=== PATIENT | female | born 1990 | race African-American/Black ===

== ENCOUNTER 2016-10-18 16:33 | Emergency (ER) | payer OTHER ==
[2016-10-18 16:50] VITALS: BP 134/89; PULSE 63; TEMP 98; BMI 31.8
[2016-10-18] MEDS ORDERED: KETOROLAC TROMETHAMINE 60 MG/2 ML VIAL IM ONE (17:26)
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
[2016-10-18] MEDS ORDERED: KETOROLAC TROMETHAMINE 60 MG/2 ML VIAL ONE (17:48)
== END 2016-10-18 18:18 | disposition home or self-care (01) ==
LOC: JERFT 16:33
PROC: 3E0233Z Introduction of Anti-inflammatory into Muscle, Percutaneous Approach (ICD-10-PCS; principal; 2016-10-18)
DX: S13.4XXA Sprain of ligaments of cervical spine, initial encounter (principal); M62.830 Muscle spasm of back; V43.62XA Car passenger injured in collision with other type car in traffic accident, initial encounter; Y92.414 Local residential or business street as the place of occurrence of the external cause; Y93.89 Activity, other specified
CPT/HCPCS: 84703; 99281-25

== ENCOUNTER 2016-10-21 17:56 | Emergency (ER) | payer OTHER ==
[2016-10-21 18:22] VITALS: BP 144/93; PULSE 87; TEMP 97.9; BMI 31.8
[2016-10-21 19:55] LABS: URINE APPEARANCE CLEAR; URINE BILIRUBIN NEGATIVE (NEGATIVE); URINE BLOOD NEGATIVE (NEGATIVE); URINE COLOR STRAW; URINE GLUCOSE (UA) NEGATIVE (NEGATIVE); URINE KETONE NEGATIVE (NEGATIVE); URINE LEUK ESTERASE NEGATIVE (NEGATIVE); URINE NITRITE NEGATIVE (NEGATIVE); URINE PROTEIN NEGATIVE (NEGATIVE); URINE UROBILINOGEN NEGATIVE E.U./dl (0.2-1.0)
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
== END 2016-10-21 20:02 | disposition home or self-care (01) ==
LOC: JERFT 17:56
DX: S13.4XXD Sprain of ligaments of cervical spine, subsequent encounter (principal); V43.62XD Car passenger injured in collision with other type car in traffic accident, subsequent encounter; Y92.414 Local residential or business street as the place of occurrence of the external cause
CPT/HCPCS: 81003; 84703; 99281-25

== ENCOUNTER 2018-12-02 08:56 | Emergency (ER) | payer OTHER | END 2018-12-02 10:18 | disposition home or self-care (01) | LOC: JERFT 08:56 ==

== ENCOUNTER 2020-02-22 16:50 | Inpatient (IN) | payer OTHER ==
[2020-02-22 19:01] LABS: EPI CELLS >36 /uL (0-25.1); HYALINE CASTS 4 /uL (0-3.1); PH,URINE 6.5 (5.0-8.0); URINE APPEARANCE CLEAR; URINE BACTERIA 1919 /uL (0-1359); URINE BILIRUBIN NEGATIVE (NEGATIVE); URINE COLOR YELLOW; URINE GLUCOSE (UA) NEGATIVE (NEGATIVE); URINE KETONE NEGATIVE (NEGATIVE); URINE LEUK ESTERASE NEGATIVE (NEGATIVE); URINE NITRITE NEGATIVE (NEGATIVE); URINE PROTEIN 2+ (NEGATIVE); URINE RBC 2 /uL (0-23.9); URINE WBC 23 /uL (0-25.8)
[2020-02-22 19:23] LABS: BASO % 0.2 % (0-2.0); EOS % 0.9 % (0-4.5); HEMATOCRIT 35.5 % (32.4-45.2); HEMOGLOBIN 11.7 GM/dL (10.7-15.3); LYMPH % 16.7 % (8-40); MCH 29.6 pg (25.7-33.7); MCHC 32.9 g/dl (32.0-36.0); MEAN CELL VOLUME 90.2 fl (80-96); MEAN PLT VOLUME 8.4 fl (7.5-11.1); MONO % 8.5 % (3.8-10.2); NEUT % 73.7 % (42.8-82.8); PLATELET COUNT 259 K/MM3 (134-434); RBC 3.93 M/mm3 (3.60-5.2); RDW 15.8 % (11.6-15.6); WHITE BLOOD COUNT 9.7 K/mm3 (4.0-10.0)
[2020-02-22 19:30] LABS: INR 0.92 (0.83-1.09); PROTHROMBIN TIME (PATIENT) 10.9 SEC (9.7-13.0); RETICULOCYTES 2.96 % (0.5-1.5)
[2020-02-22 19:32] LABS: ACTIVATED PTT 26.1 SECONDS (25.2-36.5)
[2020-02-22 20:09] LABS: URINE CRYSTALS FEW OX CA /hpf
[2020-02-22 20:13] LABS: GAMMA GLUTAMYL TRANSPEPTIDASE 14 U/L (5-85); SGOT/AST 15 U/L (15-37); SGPT/ALT 17 U/L (13-61)
[2020-02-22 20:14] LABS: BLOOD UREA NITROGEN 6.2 mg/dL (7-18); CALCIUM 8.4 mg/dL (8.5-10.1); CREATININE 0.7 mg/dL (0.55-1.3); POTASSIUM 3.9 mmol/L (3.5-5.1); URIC ACID 3.6 mg/dL (2.6-7.2)
[2020-02-22] MEDS ORDERED: BETAMET ACET/BETAMET NA PH 30 MG/5 ML VIAL ONE (20:14)
[2020-02-22] MEDS ORDERED: BETAMET ACET/BETAMET NA PH 30 MG/5 ML VIAL IM ONE (20:34)
[2020-02-22] MEDS ORDERED: ACETAMINOPHEN 325 MG TABLET (FP) PO PRN (20:37)
[2020-02-22] MEDS ORDERED: SENNOSIDES 8.6MG TABLET (FP) PO PRN (20:38)
--- NOTE | 2020-02-22 20:46 | HP ---
Past Medical History - Primary Care Physician PCP:: Blake Singh - Admission Chief Complaint: 35.2 weeks , Preeclampsia History of Present Illness: 29 yo f g 4 p1021 35.2 weeks with elevated BP and 2+ proreinuria , no headache, no blurred vision, no RUQ pain, no chest pain or difficulty breathing Last Vital Signs bp 131/88, 143/91,admitted for bp monitoring and 24 hr collection Temp Pulse Resp BP Pulse Ox 98.3 F 92 H 18 127/83 02/22/20 17:52 02/22/20 18:45 02/22/20 18:45 02/22/20 18:45 Last Vital Signs History Source: Patient Limitations to Obtaining History: No Limitations - Past Medical History 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 Neuropathy (carpal tunnel syndrome) ...: 4 ...Para: 1 ...Term: 1 ...: 0 ...Spon : 0 ...Induced : 2 ...Living Children: 1 ...EDC by Patty: 03/26/20 Infectious Disease: Yes: STD's (txed for chlamydia) - Past Surgical History Hx Myomectomy: No Hx Transabdominal Cerclage: No - Smoking History Smoking history: Never smoked Have you smoked in the past 12 months: No - Alcohol/Substance Use Hx Alcohol Use: No - Social History Usual Living Arrangement: Yes: With Spouse History of Recent Travel: No Home Medications - Allergies Allergies/Adverse Reactions: Allergies Allergy/AdvReac Type Severity Reaction Status Date / Time No Known Allergies Allergy Verified 09/21/19 20:01 - Home Medications Home Medications: Ambulatory Orders Cyclobenzaprine HCl [Flexeril 10 mg] 10 mg PO BID PRN #14 tablet 10/18/16 Diazepam [Valium] 5 mg PO HS PRN #4 tablet MDD 1 10/21/16 Naproxen [Naprosyn -] 500 mg PO BID #14 tablet 10/21/16 Review of Systems - Review of Systems Constitutional: reports: No Symptoms Eyes: reports: No Symptoms HENT: reports: No Symptoms Neck: reports: No Symptoms Cardiovascular: reports: No Symptoms Respiratory: reports: No Symptoms Gastrointestinal: reports: No Symptoms Genitourinary: reports: No Symptoms Breasts: reports: No Symptoms Reported Musculoskeletal: reports: No Symptoms Integumentary: reports: No Symptoms Neurological: reports: No Symptoms Endocrine: reports: No Symptoms Hematology/Lymphatic: reports: No Symptoms Psychiatric: reports: No Symptoms 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 - Maternity Vital Signs: Vital Signs Temperature 98.3 F 02/22/20 17:52 Pulse Rate 92 H 02/22/20 18:45 Respiratory Rate 18 02/22/20 18:45 Blood Pressure 127/83 02/22/20 18:45 O2 Sat by Pulse Oximetry (%) Constitutional: Yes: Well Nourished, No Distress, Calm Eyes: Yes: WNL, Conjunctiva Clear, EOM Intact HENT: Yes: WNL, Atraumatic, Normocephalic Neck: Yes: WNL, Supple, Trachea Midline Cardiovascular: Yes: WNL, Regular Rate and Rhythm Breast(s): Yes: WNL - Abdominal Exam/OB Fundal Height: 36 Number of Fetuses: Single Presentation: Vertex Contractions: Yes Regularity: Irregular Intensity: Unaware Monitor Mode: External Heart Rate Location: [facility] Category: I Accelerations: Non-Uniform Decelerations: None - Vaginal Exam/OB Vaginal Bleeding: No Speculum Exam: No Dilatation (cm): closed Effacement (%): 0 Amniotic Membrane Status: Intact Presentation: Vertex/Position Station: -3 - 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 Musculoskeletal: Yes: WNL Extremities: Yes: WNL Edema: Yes Edema: LLE: Trace, RLE: Trace Deep Tendon Reflex Grade: Normal +2 Psychiatric: Yes: WNL - Labs Lab Results: CBC, BMP 02/22/20 18:00 02/22/20 18:00 Hemorrhage Risk Assessment - Risk Factors Medium Risk Factors: Yes: None High Risk Factors: Yes: None Risk Score: 1 Risk Level: Medium Risk Problem List - Problems (1) with 35 completed weeks gestation Code(s): Z3A.35 - 35 WEEKS GESTATION OF (2) Pre-eclampsia affecting , antepartum Code(s): O14.90 - UNSPECIFIED PRE-ECLAMPSIA, UNSPECIFIED TRIMESTER Assessment/Plan admit for preeclampsia without severe feature fhm 24 hr urine collection celestone for lung maturity revaluate after 24 hr urine monitor BP q 4h
[2020-02-22 21:45] VITALS: BMI 44.6
--- NOTE | 2020-02-23 06:42 | PN ---
Progress Note (short form) - Note Progress Note: HD1 35 weeks, preeclampsia no headache or blurred vision , no RUQ pain, good fm Last Vital Signs Temp Pulse Resp BP Pulse Ox 98 F 75 18 114/67 02/23/20 05:51 02/23/20 05:51 02/23/20 05:51 02/23/20 05:51 abdomen soft, non tender uterus no contraction felt , non tender ext. trace edema DTR normal impression BP are mormal , asymptomatic, collecting 24 hr urine revaluate after 24 hr urine monitor bp second dose of celestone tonight Problem List - Problems (1) with 35 completed weeks gestation Code(s): Z3A.35 - 35 WEEKS GESTATION OF (2) Pre-eclampsia affecting , antepartum Code(s): O14.90 - UNSPECIFIED PRE-ECLAMPSIA, UNSPECIFIED TRIMESTER
[2020-02-23 09:25] LABS: ALBUMIN 2.4 g/dl (3.4-5.0); BILIRUBIN,TOTAL 0.3 mg/dL (0.2-1); BLOOD UREA NITROGEN 3.8 mg/dL (7-18); CALCIUM 8.4 mg/dL (8.5-10.1); CREATININE 0.6 mg/dL (0.55-1.3); POTASSIUM 4.2 mmol/L (3.5-5.1); TOT PROT 6.4 g/dl (6.4-8.2)
[2020-02-23 09:28] LABS: BASO % 0.2 % (0-2.0); EOS % 0.1 % (0-4.5); HEMATOCRIT 34.6 % (32.4-45.2); HEMOGLOBIN 11.4 GM/dL (10.7-15.3); LYMPH % 11.5 % (8-40); MCH 29.8 pg (25.7-33.7); MCHC 32.9 g/dl (32.0-36.0); MEAN CELL VOLUME 90.5 fl (80-96); MEAN PLT VOLUME 8.3 fl (7.5-11.1); MONO % 4.1 % (3.8-10.2); NEUT % 84.1 % (42.8-82.8); PLATELET COUNT 220 K/MM3 (134-434); RBC 3.82 M/mm3 (3.60-5.2); RDW 15.4 % (11.6-15.6); WHITE BLOOD COUNT 9.9 K/mm3 (4.0-10.0)
[2020-02-23] MEDS: PRENATAL VITAMINS W/ FOLIC ACID TABLET (FP) PO SCH (10:26)
[2020-02-23] MEDS ORDERED: BETAMET ACET/BETAMET NA PH 30 MG/5 ML VIAL IM ONE (20:34)
[2020-02-24] MEDS: PRENATAL VITAMINS W/ FOLIC ACID TABLET (FP) PO SCH (09:41)
[2020-02-24 10:07] LABS: BASO % 0.1 % (0-2.0); HEMATOCRIT 33.4 % (32.4-45.2); HEMOGLOBIN 11.2 GM/dL (10.7-15.3); LYMPH % 11.9 % (8-40); MCH 30.6 pg (25.7-33.7); MCHC 33.4 g/dl (32.0-36.0); MEAN CELL VOLUME 91.5 fl (80-96); MEAN PLT VOLUME 8.5 fl (7.5-11.1); MONO % 4.4 % (3.8-10.2); NEUT % 83.6 % (42.8-82.8); PLATELET COUNT 218 K/MM3 (134-434); RBC 3.64 M/mm3 (3.60-5.2); RDW 15.4 % (11.6-15.6); WHITE BLOOD COUNT 9.8 K/mm3 (4.0-10.0)
[2020-02-24 10:24] LABS: BLOOD UREA NITROGEN 6.2 mg/dL (7-18); CALCIUM 8.3 mg/dL (8.5-10.1); CREATININE 0.6 mg/dL (0.55-1.3)
[2020-02-24 10:28] LABS: ALBUMIN 2.4 g/dl (3.4-5.0); BILIRUBIN,DIRECT 0.1 mg/dL (0.0-0.2); BILIRUBIN,TOTAL 0.3 mg/dL (0.2-1); TOT PROT 6.2 g/dl (6.4-8.2)
--- NOTE | 2020-02-24 10:44 | PN ---
Progress Note, Physician Chief Complaint: 29yo P1 @ 35.5wks admited for Preeclampsia s/p Celestone 02/23/20 pm reports some temporal FUCHS, just took Tylenol TV was blasting very high volume as I walked into the room no visual changes, no RUQ pain no facial or upper extremity edema - Current Medication List Current Medications: Active Medications Acetaminophen (Tylenol -) 650 mg PO Q6H PRN PRN Reason: PAIN LEVEL 4 - 6 Last Admin: 02/24/20 09:43 Dose: 650 mg Documented by: Multivit/Folic Acid/Iron ( Vitamins (Sjr) -) 1 tab PO DAILY HEAVEN Last Admin: 02/24/20 09:41 Dose: 1 tab Documented by: Senna (Senna -) 1 tab PO HS PRN PRN Reason: CONSTIPATION - Objective Vital Signs: Vital Signs Temperature 98.1 F 02/24/20 06:00 Pulse Rate 84 02/24/20 06:00 Respiratory Rate 20 02/24/20 06:00 Blood Pressure 125/73 02/24/20 06:00 O2 Sat by Pulse Oximetry (%) Constitutional: Yes: Well Nourished, No Distress, Calm Eyes: Yes: WNL HENT: Yes: WNL Neck: Yes: WNL, Supple Cardiovascular: Yes: WNL Respiratory: Yes: WNL Gastrointestinal: Yes: WNL, Soft Breast(s): Yes: WNL Musculoskeletal: Yes: WNL Extremities: Yes: WNL Edema: No Integumentary: Yes: WNL Neurological: Yes: WNL, Alert, Oriented ...Motor Strength: WNL Psychiatric: Yes: WNL, Alert, Oriented Labs: CBC, BMP 02/24/20 09:25 02/24/20 09:25 INR, PTT INR 0.92 (0.83-1.09) 02/22/20 18:00 Fibrinogen 329.0 mg/dL (238-498) 02/24/20 09:25 Assessment/Plan 29yo P 1 @ 35.5wks admitted for Preeclampsia, Sever BP in the office reports "running around doing too many things" prior to the office visit all BPs on admission are wnl all labs wnl today 24hr UA Protein - abnormal ~1.4gm will observe for additional 24hr and allow Celestone to take effect If any sever features prior will start induction earlier
[2020-02-25 08:39] LABS: BASO % 0.3 % (0-2.0); EOS % 0.4 % (0-4.5); HEMOGLOBIN 10.7 GM/dL (10.7-15.3); LYMPH % 19.5 % (8-40); MCH 30.6 pg (25.7-33.7); MCHC 33.3 g/dl (32.0-36.0); MEAN CELL VOLUME 91.8 fl (80-96); MEAN PLT VOLUME 8.6 fl (7.5-11.1); MONO % 8.6 % (3.8-10.2); NEUT % 71.2 % (42.8-82.8); PLATELET COUNT 204 K/MM3 (134-434); RBC 3.49 M/mm3 (3.60-5.2); RDW 15.9 % (11.6-15.6); WHITE BLOOD COUNT 9.4 K/mm3 (4.0-10.0)
[2020-02-25 09:07] LABS: ALBUMIN 2.2 g/dl (3.4-5.0); BILIRUBIN,TOTAL 0.4 mg/dL (0.2-1); BLOOD UREA NITROGEN 5.7 mg/dL (7-18); CALCIUM 8.5 mg/dL (8.5-10.1); CREATININE 0.6 mg/dL (0.55-1.3); POTASSIUM 3.7 mmol/L (3.5-5.1)
[2020-02-25] MEDS: PRENATAL VITAMINS W/ FOLIC ACID TABLET (FP) PO SCH (09:59)
--- NOTE | 2020-02-25 11:19 | PN ---
Progress Note, Physician Chief Complaint: 29yo P1 @ 35.6 wks admited for Preeclampsia s/p Celestone 02/23/20 pm reports no FUCHS, no visual changes, no RUQ pain no facial or upper extremity edema - Current Medication List Current Medications: Active Medications Acetaminophen (Tylenol -) 650 mg PO Q6H PRN PRN Reason: PAIN LEVEL 4 - 6 Last Admin: 02/24/20 09:43 Dose: 650 mg Documented by: Multivit/Folic Acid/Iron ( Vitamins (Sjr) -) 1 tab PO DAILY HEAVEN Last Admin: 02/25/20 09:59 Dose: 1 tab Documented by: Senna (Senna -) 1 tab PO HS PRN PRN Reason: CONSTIPATION - Objective Vital Signs: Vital Signs Temperature 98.2 F 02/25/20 06:00 Pulse Rate 81 02/25/20 06:00 Respiratory Rate 20 02/25/20 06:00 Blood Pressure 108/67 02/25/20 06:00 O2 Sat by Pulse Oximetry (%) 99 02/24/20 18:30 Constitutional: Yes: Well Nourished, No Distress, Calm Eyes: Yes: WNL HENT: Yes: WNL Neck: Yes: WNL, Supple, Trachea Midline Cardiovascular: Yes: WNL, Regular Rate and Rhythm Respiratory: Yes: WNL Gastrointestinal: Yes: WNL, Normal Bowel Sounds, Soft Genitourinary: Yes: WNL, Other (Gravid abdomen VE 1/50%/-4) Breast(s): Yes: WNL Musculoskeletal: Yes: WNL Extremities: Yes: WNL Edema: No Integumentary: Yes: WNL Neurological: Yes: WNL, Alert, Oriented ...Motor Strength: WNL Psychiatric: Yes: WNL, Alert, Oriented Labs: CBC, BMP 02/25/20 07:50 02/25/20 07:50 INR, PTT INR 0.92 (0.83-1.09) 02/22/20 18:00 Fibrinogen 329.0 mg/dL (238-498) 02/24/20 09:25 Assessment/Plan 29yo P 1 @ 35.6 wks admitted for Preeclampsia, Sever BP in the office reports "running around doing too many things" prior to the office visit all BPs on admission are wnl, none in sever range all labs wnl today again 24hr UA Protein - abnormal ~1.4gm, but not in sever range Since currently no sever features of Preeclampsia plan that would benefit the baby discussed Will recommend close in office and stay home observation for 1 week and Induction of labor in 1 week all features of sever disease discussed, instructed to report to the hospital or office immediately risk of stroke, seizure or with sever disease discussed Patient fully understands recommendations and will RTO 02/27/20
[2020-02-25 12:40] VITALS: BP 113/76; PULSE 82; TEMP 98.6
== END 2020-02-25 12:20 | disposition home or self-care (01) | DRG 566 ==
LOC: JDEL 16:50 → JLDR 20:00 → J3W 23:06
PROVIDERS: ADMIT Obstetrics & Gynecology; ATTEND Obstetrics & Gynecology
DX: O14.93 Unspecified pre-eclampsia, third trimester (principal); Z3A.35 35 weeks gestation of pregnancy; G56.00 Carpal tunnel syndrome, unspecified upper limb; Z86.19 Personal history of other infectious and parasitic diseases
CPT/HCPCS: 36415; 80048; 80053; 80076; 81003; 82977; 83010; 84156; 84450; 84460; 84550; 85025; 85032; 85045; 85384; 85610; 85730; 86780; 86850; 86900; 86901; 87389; 96372; U0003

== ENCOUNTER 2020-03-05 07:00 | Inpatient (IN) | payer OTHER ==
--- OUTSIDE RECORDS SUMMARY | 2020-03-05 07:11 | XMS ---
:1990 Author Organization [facility] Support Name Relationship Address Phone UE, UNEMPLOYED Unavailable Unavailable Unavailable UE Unavailable Unavailable Unavailable [employer] Unavailable [address] [place] [address] BERTO SAUCEDA [address] [facility] [place] [address] BERTO SAUCEDA Mother [address] [facility] [phone] [place] [address] Re-disclosure Warning The records that you are about to access may contain information from federally- assisted alcohol or drug abuse programs. If such information is present, then the following federally mandated warning applies: This information has been disclosed to you from records protected by federal confidentiality rules (42 CFR part 2). The federal rules prohibit you from making any further disclosure of this information unless further disclosure is expressly permitted by the written consent of the person to whom it pertains or as otherwise permitted by 42 CFR part 2. A general authorization for the release of medical or other information is NOT sufficient for this purpose. The Federal rules restrict any use of the information to criminally investigate or prosecute any alcohol or drug abuse patient.The records that you are about to access may contain highly sensitive health information, the redisclosure of which is protected by Article 27-F of the [facility] Public Health law. If you continue you may haveaccess to information: Regarding HIV / AIDS; Provided by facilities licensed or operated by the [facility] Office of Mental Health; or Provided by the [facility] Office for People With Developmental Disabilities. If such information is present, then the following [facility] mandated warning applies: This information has been disclosed to you from confidential records which are protected by state law. State law prohibits you from making any further disclosure of this information without the specific written consent of the person to whom it pertains, or as otherwise permitted by law. Any unauthorized further disclosure in violation of state law may result in a fine or fdc sentence or both. A general authorization for the release of medical or other information is NOT sufficient authorization for further disclosure. Insurance Providers Payer name Policy type Policy ID Covered Covered green party's Policy P meredith / Coverage green party ID relationship to Padilla Inf ormation type padilla [employer]INITY [id number] SP [id number] MEDICAID [id number] SP [id number] SELF PAY INSURANCE CIGNA [id number] SP [id number] HEALTHCARE HMO CIGNA [id number] SP [id number] Results ID Date Data Source [id number] 02/22/2020 09:42:00 PM EDT [facility] Name Value Range Interpretation Description Data Sup porting Code Source(s) Document(s ) SARS [facility] coronavirus 2 RNA This lab was ordered by [facility] and reported by [facility]. Procedure
--- NOTE | 2020-03-05 07:37 | HP ---
Past Medical History - Primary Care Physician PCP:: Basilia Ntaion - Admission Chief Complaint: 29yo P 1 @ 36 wks with mild Preeclampsia, no FUCHS, no RUQ pain, no visual changes, no VB, no LOF, +FM. Nasal discomfort, possibly "developing sinusitis" in patient's words History of Present Illness: 1. Mild Preeclampsia, s/p Stadol 1 week ago, will repeat the Pec labs 2. 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: Peripheral Neuropathy (carpal tunnel syndrome) ...Para: 1 ( 7lb) ...Living Children: 1 Infectious Disease: Yes: STD's (txed for chlamydia) - Past Surgical History Hx Myomectomy: No Hx Transabdominal Cerclage: No - Smoking History Smoking history: Never smoked Have you smoked in the past 12 months: No - Alcohol/Substance Use Hx Alcohol Use: No - Social History History of Recent Travel: No Home Medications - Allergies Allergies/Adverse Reactions: Allergies Allergy/AdvReac Type Severity Reaction Status Date / Time No Known Allergies Allergy Verified 03/05/20 08:37 - Home Medications Home Medications: Ambulatory Orders Vits96/Iron Fum/Folic [ Tablet] 1 tab PO DAILY 02/28/20 Review of Systems - Review of Systems Constitutional: reports: No Symptoms Eyes: reports: No Symptoms HENT: reports: No Symptoms Neck: reports: No Symptoms Cardiovascular: reports: No Symptoms Respiratory: reports: No Symptoms Gastrointestinal: reports: No Symptoms Genitourinary: reports: No Symptoms Breasts: reports: No Symptoms Reported Musculoskeletal: reports: No Symptoms Integumentary: reports: No Symptoms Neurological: reports: No Symptoms Endocrine: reports: No Symptoms Hematology/Lymphatic: reports: No Symptoms Psychiatric: reports: No Symptoms Pain Intensity: 0 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 - Maternity Constitutional: Yes: Well Nourished, No Distress, Calm Eyes: Yes: WNL HENT: Yes: WNL Neck: Yes: WNL Cardiovascular: Yes: WNL, Regular Rate and Rhythm Lungs: Clear to auscultation Breast(s): Yes: WNL - Abdominal Exam/OB Fundal Height: 36 Number of Fetuses: Single Presentation: Vertex Contractions: No Regularity: Irritability Monitor Mode: External Heart Rate (range): 130 Heart Rate Location: Midline Category: I Accelerations: Uniform Decelerations: None - Vaginal Exam/OB Vaginal Bleeding: No Dilatation (cm): 2 Effacement (%): 50% Amniotic Membrane Status: Intact Presentation: Vertex/Position - 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 Musculoskeletal: Yes: WNL Extremities: Yes: WNL Edema: LLE: Trace, RLE: Trace Integumentary: Yes: WNL Deep Tendon Reflex Grade: Normal +2 ...Motor Strength: WNL Psychiatric: Yes: WNL, Alert, Oriented Assessment/Plan 29yo P1 @ 36wks with mild Preeclampsia, obesity, s/p Celestone Admit to L&D For IOL Pec labs, IVF Cervical christianson placed, 80cc NS on the balloon Start Pitocin @ 1 mU/min Pain medication as per patient request Induction process discussed with patient in detail We had long discussion re: risks, benefits, and alternatives of labor induction. I explained the options of expectant management awaiting spontaneous labor, induction of labor, and elective section. The risks of uterine tachysystole, distress, uterine rupture, need for emergency C/S, hemorrhage, infection, scarring, etc. were discussed. We also discussed the risks of meconium aspiration, shoulder dystocia, and anesthesia options. The pt requested to proceed with induction. We discussed the alternative methods of induction with Cervidil, Cytotec, Folley ballon, and pitocin. The pt prefers Cervical Christianson and pitocin method.
[2020-03-05] MEDS: ELECTROLYTE-148 SOLN 1,000 ML IV SCH ×3 (08:00→19:00)
[2020-03-05] MEDS ORDERED: DINOPROSTONE 10 MG VAGINAL SUPPOSITORY VG ONE (08:30)
[2020-03-05 09:10] LABS: BASO % 0.4 % (0-2.0); EOS % 1.1 % (0-4.5); HEMATOCRIT 34.9 % (32.4-45.2); HEMOGLOBIN 11.7 GM/dL (10.7-15.3); LYMPH % 19.2 % (8-40); MCHC 33.5 g/dl (32.0-36.0); MEAN CELL VOLUME 89.5 fl (80-96); MEAN PLT VOLUME 8.5 fl (7.5-11.1); MONO % 7.5 % (3.8-10.2); NEUT % 71.8 % (42.8-82.8); PLATELET COUNT 257 K/MM3 (134-434); RDW 15.9 % (11.6-15.6); WHITE BLOOD COUNT 10.4 K/mm3 (4.0-10.0)
[2020-03-05 09:12] LABS: RETICULOCYTES 2.36 % (0.5-1.5)
[2020-03-05 09:18] LABS: INR 0.89 (0.83-1.09); PROTHROMBIN TIME (PATIENT) 10.5 SEC (9.7-13.0)
[2020-03-05 09:20] LABS: ACTIVATED PTT 25.5 SECONDS (25.2-36.5)
[2020-03-05 09:22] VITALS: BMI 44.8
[2020-03-05] MEDS ORDERED: PROMETHAZINE HCL 25 MG/1 ML VIAL IVPB ONE (09:23)
[2020-03-05] MEDS ORDERED: BUTORPHANOL TARTRATE 1 MG/ML VIAL IVPUSH ONE (09:23)
[2020-03-05 09:33] LABS: BLOOD UREA NITROGEN 5.4 mg/dL (7-18); CREATININE 0.6 mg/dL (0.55-1.3); POTASSIUM 3.8 mmol/L (3.5-5.1); URIC ACID 3.3 mg/dL (2.6-7.2)
[2020-03-05] MEDS ORDERED: BUTORPHANOL TARTRATE 2 MG/ML VIAL ONE (09:40)
[2020-03-05] MEDS ORDERED: PROMETHAZINE HCL 25 MG/1 ML VIAL ONE (09:40)
[2020-03-05] MEDS ORDERED: OXYTOCIN 30 UNITS in 0.9% NS 30 UNIT/500 ML INFUS.BAG IVPB ONE (09:40)
[2020-03-05] MEDS: OXYTOCIN 30 UNITS in 0.9% NS 30 UNIT/500 ML INFUS.BAG IVPB SCH (09:45)
[2020-03-05] MEDS ORDERED: PCA PUMP NR ONE (12:16)
[2020-03-05] MEDS ORDERED: FENTANYL/BUPIVACAINE/NS/PF - PCEA - 50 ML DISP.SYRIN EP ONE ×4 (12:16→23:05)
[2020-03-05] MEDS: FENTANYL/BUPIVACAINE/NS/PF - PCEA - 50 ML DISP.SYRIN EP SCH (13:00)
[2020-03-05] MEDS ORDERED: NALOXONE HCL 0.4 MG/ML VIAL IVPUSH PRN (13:14)
--- NOTE | 2020-03-05 14:17 | PN ---
Progress Note, Labor Vaginal Exam #1 Labor Exam Date: 03/05/20 Labor Exam Time: 14:10 Heart Rate (range): 140's Category 1 Dilatation: 6 Effacement (%): 75 Amniotic Membrane Status: Intact Presentation: Vertex/Position Station: -3 Remarks: Cervical Balloon removed Pitocin @ 5mU/min Will continue titrating Pitocin MF Status reassuring BPs and PEC labs wnl Continue monitoring progress of labor Anticipate
[2020-03-05] MEDS ORDERED: OXYTOCIN 20 UNITS in 0.9% NS 20 UNIT/1,000 ML INFUS.BAG IV ONE (19:38)
[2020-03-05] MEDS ORDERED: LIDOCAINE HCL 1% PRESERVATIVE FREE - 30ML VIAL ONE (19:38)
--- NOTE | 2020-03-05 21:08 | PN ---
Ante-Partal Exam - Subjective Subjective: No complaints. Exam at 19:55. Vital Signs: Vital Signs Temperature 98.8 F 03/05/20 19:58 Pulse Rate 95 H 03/05/20 18:45 Respiratory Rate 20 03/05/20 18:45 Blood Pressure 133/85 03/05/20 18:45 O2 Sat by Pulse Oximetry (%) 100 03/05/20 18:45 Bleeding: No Headache: No Visual changes: No Pain (scale 1-10): 0 - Contractions Contractions: Yes Regularity: Regular Intensity: Moderate Monitor Mode: External - Exam during Labor Heart Rate: 140 Variability: Moderate Heart Rate Location: Midline Category: I Monitor Accelerations: Present Monitor Decelerations: None Exam: Vaginal Dilatation (cm): 6 Effacement (%): 70 Amniotic Membrane Status: Ruptured (AROM) Nitrazine Test: Positive Amniotic Fluid: Clear Presentation: Vertex Station: -3 Remarks: Gynecoid pelvimetry - Intrapartum Hemorrhage Risk Medium Risk Factors: None High Risk Factors: None Risk Score: 0 Risk Level: Low Risk - Assessment/Plan Assessment/Plan: Pt being induced for pre-eclmapsia, in setting of morbid obesity and excessive weight gain. Fetus with category I tracing Labor protracted in active phase. AROM done. Plan to continue pitocin and monitor labor. Anticipate .
--- NOTE | 2020-03-05 22:07 | PN ---
Ante-Partal Exam - Subjective Subjective: Pt w/o complaints. Position adjusted. Minimal variability with some early decels on FHR noted. Pt was examined at 9:57pm. Vital Signs: Vital Signs Temperature 98.5 F 03/05/20 22:00 Pulse Rate 92 H 03/05/20 20:45 Respiratory Rate 19 03/05/20 20:45 Blood Pressure 119/77 03/05/20 20:45 O2 Sat by Pulse Oximetry (%) 100 03/05/20 20:45 Bleeding: No Headache: No Visual changes: No Right upper quadrant pain: No Pain (scale 1-10): 0 - Contractions Contractions: Yes Regularity: Irregular (q4-6min) Intensity: Unaware Monitor Mode: External - Exam during Labor Heart Rate: 150 Variability: Minimal Heart Rate Location: Midline Category: II Monitor Accelerations: Present (scalp stim at 9:57pm present) Monitor Decelerations: Early Exam: Vaginal Dilatation (cm): 7 Effacement (%): 70 Amniotic Membrane Status: Leaking Amniotic Fluid: Clear Presentation: Vertex Station: -3 - Intrapartum Hemorrhage Risk Medium Risk Factors: None High Risk Factors: None Risk Score: 0 Risk Level: Low Risk - Assessment/Plan Assessment/Plan: Pt with reassuring FHT and scalp stim present Labor progressing slowly and protracted Plan to monitor progress Pt position changed, O2 is by mask.
--- NOTE | 2020-03-06 00:14 | PN ---
Ante-Partal Exam - Subjective Subjective: Pt felt pelvic pressure. Vital Signs: Vital Signs Temperature 98.9 F 03/05/20 23:00 Pulse Rate 94 H 03/05/20 22:45 Respiratory Rate 18 03/05/20 22:45 Blood Pressure 130/92 03/05/20 22:45 O2 Sat by Pulse Oximetry (%) 100 03/05/20 22:45 Bleeding: No Headache: No Visual changes: No Right upper quadrant pain: No Pain (scale 1-10): 1 - Contractions Contractions: Yes Regularity: Irregular (4-6min) Intensity: Moderate Monitor Mode: External - Exam during Labor Heart Rate: 150 Variability: Moderate Heart Rate Location: Midline Category: I Monitor Accelerations: Present (scalp stim at 12MN) Monitor Decelerations: None Exam: Vaginal Dilatation (cm): 9 Effacement (%): 100 Amniotic Membrane Status: Leaking Amniotic Fluid: Clear Presentation: Vertex Station: 0 - Intrapartum Hemorrhage Risk Medium Risk Factors: None High Risk Factors: None Risk Score: 0 Risk Level: Low Risk - Assessment/Plan Assessment/Plan: P1 at 37 wks induced for pre-eclampsia. BP normal now Pt is comfortable with epidural Labor progressing but protracted, Fetus with category I tracing. Will continue monitoring labor progress.
[2020-03-06] MEDS: ELECTROLYTE-148 SOLN 1,000 ML IV SCH (01:00)
[2020-03-06] MEDS ORDERED: BISACODYL 10 MG SUPP.RECT RC PRN (02:25)
[2020-03-06] MEDS ORDERED: METHYLERGONOVINE MALEATE 0.2 MG/1 ML AMP IM PRN (02:25)
[2020-03-06] MEDS ORDERED: BENZOCAINE 20% 57 GM BOTTLE TP PRN (02:25)
[2020-03-06] MEDS ORDERED: WITCH HAZEL 50% (TUCKS) 40 PAD/JAR PAD TP PRN (02:25)
[2020-03-06] MEDS ORDERED: BENZOCAINE 28 GM HEMORRHOIDAL OINTMENT TP PRN (02:25)
[2020-03-06 02:53] LABS: CORD BASE EXCESS -5.7 mmol/L (0-2); CORD HCO3 22.3 mmHg (20-29); CORD PCO2 52.8 mmHg (30-78); CORD pH 7.244 (7.14-7.44)
[2020-03-06 02:58] LABS: CORD BASE EXCESS -4.7 mmol/L (0-2); CORD HCO3 20.7 mmHg (20-29); CORD PCO2 39.5 mmHg (30-78); CORD pH 7.337 (7.14-7.44)
[2020-03-06] MEDS ORDERED: IBUPROFEN 600 MG TABLET (FP) PO ONE (07:16)
[2020-03-06] MEDS ORDERED: ACETAMINOPHEN 325 MG TABLET (FP) ONE (07:16)
[2020-03-06] MEDS: IBUPROFEN 600 MG TABLET (FP) PO PRN (07:20)
[2020-03-06] MEDS: ACETAMINOPHEN 325 MG TABLET (FP) PO PRN (07:20)
--- NOTE | 2020-03-06 07:35 | PN ---
Progress Note (short form) - Note Progress Note: Called by nurse to evaluate patient who delivered a live baby at 2am by Dr. Diamond. I came to evaluate patient because she passed a large clot upon stading. PE : Intact perineum Presence of large amount of clots inside the uterus Uterus firm S/P: S/P S/P clots removal Continue close monitoring
[2020-03-06] MEDS: PRENATAL VITAMINS W/ FOLIC ACID TABLET (FP) PO SCH (09:37)
[2020-03-06] MEDS: OXYTOCIN 20 UNITS in 0.9% NS 20 UNIT/1,000 ML INFUS.BAG IV SCH (10:00)
[2020-03-06] MEDS ORDERED: OXYTOCIN 20 UNITS in 0.9% NS 20 UNIT/1,000 ML INFUS.BAG IV ONE (10:05)
[2020-03-06] MEDS: OXYTOCIN 30 UNITS in 0.9% NS 30 UNIT/500 ML INFUS.BAG IVPB SCH (12:09)
--- NOTE | 2020-03-06 14:38 | PN ---
Delivery - Delivery Vaginal Delivery: No Problems, Spontaneous Type of Anesthesia: Epidural Episiotomy/Laceration: None EBL (cc): 500 Delivery, Single - Stages of Labor Date 1st Stage Initiatied: 03/05/20 Time 1st Stage Initiated: 09:45 Date 2nd Stage Initiated: 03/06/20 Time 2nd Stage Initiated: 01:25 Date of Delivery: 03/06/20 Time of Delivery: 02:05 Time Placenta Delivered: 02:08 Placenta: Yes: Spontaneous, Normal Configuration - Condition of Otolaryngologist/General Doc Present: No Infant Gender: Male Weight: 3.26 kg Position: Left, OA Total Hours ROM (Hrs/Mins): 6hrs 3min - 1 Minute Total Score: 9 5 Minutes Total Score: 9 - [place] Feeding Plan Initial Plan: Elected not to breastfeed exclusively throughout hospitalization Benefits of Exclusively reinforced: Yes Remarks - Remarks Remarks: w/o complications
[2020-03-06] MEDS: FENTANYL/BUPIVACAINE/NS/PF - PCEA - 50 ML DISP.SYRIN EP SCH (19:50)
[2020-03-07] MEDS: ELECTROLYTE-148 SOLN 1,000 ML IV SCH ×2 (02:44→09:33)
[2020-03-07] MEDS: OXYTOCIN 20 UNITS in 0.9% NS 20 UNIT/1,000 ML INFUS.BAG IV SCH (02:45)
[2020-03-07] MEDS: IBUPROFEN 600 MG TABLET (FP) PO PRN ×3 (02:45→22:27)
[2020-03-07 09:08] LABS: BASO % 0.5 % (0-2.0); EOS % 2.5 % (0-4.5); HEMOGLOBIN 8.6 GM/dL (10.7-15.3); LYMPH % 17.7 % (8-40); MCH 30.2 pg (25.7-33.7); MCHC 33.1 g/dl (32.0-36.0); MEAN CELL VOLUME 91.1 fl (80-96); MEAN PLT VOLUME 8.3 fl (7.5-11.1); MONO % 7.9 % (3.8-10.2); NEUT % 71.4 % (42.8-82.8); PLATELET COUNT 222 K/MM3 (134-434); RBC 2.86 M/mm3 (3.60-5.2); RDW 15.6 % (11.6-15.6); WHITE BLOOD COUNT 9.9 K/mm3 (4.0-10.0)
--- NOTE | 2020-03-07 09:16 | PN ---
Post Progress Note - Subjective Subjective: Patient without acute complaints. Reports tolerating oral intake without nausea or vomiting. Ambulating without dizziness. Denies fevers or chills. Pain well controlled with oral pain medication. without difficulty. Passing flatus. Type of Delivery: Vital Signs: Vital Signs Temperature 98.4 F 03/07/20 06:00 Pulse Rate 83 03/07/20 06:00 Respiratory Rate 18 03/07/20 06:00 Blood Pressure 129/81 03/07/20 06:00 O2 Sat by Pulse Oximetry (%) 97 03/07/20 06:00 Breast Exam: Yes: Soft Uterus: Yes: Fundus Firm, Fundus below umbilicus Abdomen/GI: Yes: Abdomen soft, Passing flatus, Tolerating PO. No: Abdominal Distention, Tender Lochia: Yes: Rubra Lochia, amount: Moderate Extremities: Yes: Calves non-tender. No: Edema - Labs Labs: CBC WBC 9.9 K/mm3 (4.0-10.0) 03/07/20 08:30 RBC 2.86 M/mm3 (3.60-5.2) L 03/07/20 08:30 Hgb 8.6 GM/dL (10.7-15.3) L 03/07/20 08:30 Hct 26.0 % (32.4-45.2) L D 03/07/20 08:30 MCV 91.1 fl (80-96) 03/07/20 08:30 MCH 30.2 pg (25.7-33.7) 03/07/20 08:30 MCHC 33.1 g/dl (32.0-36.0) 03/07/20 08:30 RDW 15.6 % (11.6-15.6) 03/07/20 08:30 Plt Count 222 K/MM3 (134-434) 03/07/20 08:30 MPV 8.3 fl (7.5-11.1) 03/07/20 08:30 Absolute Neuts (auto) 7.1 K/mm3 (1.5-8.0) 03/07/20 08:30 Neutrophils % 71.4 % (42.8-82.8) 03/07/20 08:30 Lymphocytes % 17.7 % (8-40) 03/07/20 08:30 Monocytes % 7.9 % (3.8-10.2) 03/07/20 08:30 Eosinophils % 2.5 % (0-4.5) D 03/07/20 08:30 Basophils % 0.5 % (0-2.0) 03/07/20 08:30 Nucleated RBC % 0 % (0-0) 03/07/20 08:30 Retic Count 2.36 % (0.5-1.5) H D 03/05/20 08:30 Haptoglobin 159 mg/dL (33-278) 03/05/20 08:30 Assessment/Plan 29 yo PPD # 1 s/p , afebrile, vital signs stable, mild asymptomatic anemia, doing well 1. Continue routine care. 2. s/p passage of large clot PPD # 0 - mild asymptomatic anemia noted. Will start iron and colace 3. Rh positive status, no rhogam indicated. 4. Encourage ambulation 5. Continue oral pain medication 6. Anticipate discharge home day #2
[2020-03-07] MEDS: OXYTOCIN 30 UNITS in 0.9% NS 30 UNIT/500 ML INFUS.BAG IVPB SCH (09:33)
[2020-03-07] MEDS: FERROUS SO4 325 MG TABLET (FP) PO SCH ×2 (10:09→17:11)
[2020-03-07] MEDS: DOCUSATE SODIUM 100 MG CAPSULE (FP) PO PRN (10:09)
[2020-03-07] MEDS: PRENATAL VITAMINS W/ FOLIC ACID TABLET (FP) PO SCH (10:09)
[2020-03-07] MEDS: ACETAMINOPHEN 325 MG TABLET (FP) PO PRN ×2 (10:57→22:27)
[2020-03-07] MEDS ORDERED: SENNOSIDES/DOCUSATE COMBO (SENNA PLUS) TABLET (UD) PO PRN (22:00)
--- NOTE | 2020-03-08 07:55 | DS ---
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-NURSING DIRECTOR Vital Signs: Vital Signs Temperature 98.8 F 03/07/20 22:00 Pulse Rate 99 H 03/07/20 22:00 Respiratory Rate 20 03/07/20 22:00 Blood Pressure 131/77 03/07/20 22:00 O2 Sat by Pulse Oximetry (%) 97 03/07/20 06:00 Constitutional: Yes: Well Nourished, No Distress, Calm Eyes: Yes: WNL, Conjunctiva Clear, EOM Intact HENT: Yes: WNL, Atraumatic, Normocephalic Neck: Yes: WNL, Supple, Trachea Midline Cardiovascular: Yes: WNL, Regular Rate and Rhythm Respiratory: Yes: WNL, Regular, CTA Bilaterally Gastrointestinal: Yes: WNL ...Rectal Exam: Yes: WNL Renal/: Yes: WNL ....Post : Yes: Uterus firm, Uterus non-tender, Slight lochia rubra Breast(s): Yes: WNL Musculoskeletal: Yes: WNL Extremities: Yes: WNL Edema: No Integumentary: Yes: WNL Neurological: Yes: WNL, Alert, Oriented ...Motor Strength: WNL Psychiatric: Yes: WNL, Alert, Oriented Labs: CBC, BMP 03/07/20 08:30 03/05/20 08:30 Delivery - Delivery Vaginal Delivery: No Problems, Spontaneous Type of Anesthesia: Epidural Episiotomy/Laceration: None EBL (cc): 500 Delivery, Single - Stages of Labor Date 1st Stage Initiatied: 03/05/20 Time 1st Stage Initiated: 09:45 Date 2nd Stage Initiated: 03/06/20 Time 2nd Stage Initiated: 01:25 Date of Delivery: 03/06/20 Time of Delivery: 02:05 Time Placenta Delivered: 02:08 Placenta: Yes: Spontaneous, Normal Configuration - Condition of Chemist Water Purification/Mucker Operator Present: No Infant Gender: Male Weight: 7 lb 3 oz Position: Left, OA Total Hours ROM (Hrs/Mins): 6hrs 3min - 1 Minute Total Score: 9 5 Minutes Total Score: 9 - Feeding Plan Initial Plan: Elected not to breastfeed exclusively throughout hospitalization Benefits of Exclusively reinforced: Yes Discharge Summary Problems reviewed: Yes Reason For Visit: LABOR INDUCTION Procedures: Principal: Hospital Course: no complication Health Concerns: anemia Plan of Treatment: iron, vit , follow up office 1 week Condition: Good - Instructions Diet, Activity, Other Instructions: regular diet, no intercourse, follow up office 4 weeks, if fever, pain, heavy vaginal bleeding call md Referrals: Micheal Merida [Primary Care Provider] - Disposition: HOME - Home Medications Comprehensive Discharge Medication List: Ambulatory Orders Vits96/Iron Fum/Folic [ Tablet] 1 tab PO DAILY 02/28/20 Ibuprofen [Motrin -] 600 mg PO TID #21 tablet 03/07/20
[2020-03-08] MEDS: IBUPROFEN 600 MG TABLET (FP) PO PRN (08:40)
[2020-03-08] MEDS: ACETAMINOPHEN 325 MG TABLET (FP) PO PRN (08:41)
[2020-03-08] MEDS: PRENATAL VITAMINS W/ FOLIC ACID TABLET (FP) PO SCH (10:12)
[2020-03-08] MEDS: FERROUS SO4 325 MG TABLET (FP) PO SCH (10:12)
[2020-03-08] MEDS: DOCUSATE SODIUM 100 MG CAPSULE (FP) PO PRN (10:12)
[2020-03-08 10:30] VITALS: BP 139/85; PULSE 88; TEMP 98.5
== END 2020-03-08 12:45 | disposition home or self-care (01) | DRG 560 ==
LOC: JLDR 07:00 → J3N 03-06 12:33
PROVIDERS: ADMIT Obstetrics & Gynecology; ATTEND Obstetrics & Gynecology
PROC: 3E033VJ Introduction of Other Hormone into Peripheral Vein, Percutaneous Approach (ICD-10-PCS; principal; 2020-03-05)
PROC: 10907ZC Drainage of Amniotic Fluid, Therapeutic from Products of Conception, Via Natural or Artificial Opening (ICD-10-PCS; 2020-03-06)
PROC: 10E0XZZ Delivery of Products of Conception, External Approach (ICD-10-PCS; 2020-03-06)
DX: O14.03 Mild to moderate pre-eclampsia, third trimester (principal); O99.214 Obesity complicating childbirth; E66.01 Morbid (severe) obesity due to excess calories; O90.81 Anemia of the puerperium; D64.9 Anemia, unspecified; Z3A.37 37 weeks gestation of pregnancy; Z37.0 Single live birth; Z86.69 Personal history of other diseases of the nervous system and sense organs; Z86.19 Personal history of other infectious and parasitic diseases
CPT/HCPCS: 36415; 36600; 59409; 80048; 82803; 82977; 83010; 84450; 84460; 84550; 85025; 85032; 85045; 85610; 85730; 86780; 86850; 86900; 86901

== ENCOUNTER 2024-02-25 03:13 | Emergency (ER) | payer OTHER ==
[2024-02-25 03:25] VITALS: BP 124/65; PULSE 71; RESP 18; TEMP 98.3; BMI 32.1
[2024-02-25] MEDS ORDERED: ONDANSETRON 4 MG/2 ML VIAL ONE (04:19)
[2024-02-25] MEDS: ONDANSETRON 4 MG/2 ML VIAL IVPB ONE (04:26)
[2024-02-25] MEDS: SODIUM CHLORIDE 0.9% 500 ML INFUS.BAG IV ONE (04:26)
== END 2024-02-25 06:04 | disposition home or self-care (01) ==
LOC: JER 03:13
PROC: 3E033GC Introduction of Other Therapeutic Substance into Peripheral Vein, Percutaneous Approach (ICD-10-PCS; principal; 2024-02-25)
DX: N93.9 Abnormal uterine and vaginal bleeding, unspecified (principal); R42 Dizziness and giddiness; R11.0 Nausea
CPT/HCPCS: 99284-25

== ENCOUNTER 2025-01-21 21:06 | Emergency (ER) | payer OTHER ==
[2025-01-21 21:10] VITALS: BP 161/102; PULSE 95; RESP 17; TEMP 98.6; BMI 32.5
[2025-01-21] MEDS ORDERED: ACETAMINOPHEN INJECTION 100 ML ONE (21:43)
[2025-01-21] MEDS ORDERED: FAMOTIDINE 20 MG/50 ML IVPB 20 MG/50 ML MG IVPB ONE (21:43)
[2025-01-21] MEDS ORDERED: ONDANSETRON 4 MG/2 ML VIAL ONE (21:43)
[2025-01-21] MEDS: ACETAMINOPHEN 1000 MG/100 ML BAG IVPB ONE (22:06)
[2025-01-21] MEDS: FAMOTIDINE 20 MG/50 ML IVPB 20 MG/50 ML MG IVPB ONE (22:07)
[2025-01-21] MEDS: ONDANSETRON 4 MG/2 ML VIAL IVPUSH ONE (22:08)
[2025-01-21 22:15] LABS: ABSOLUTE IMMATURE GRANULOCYTES 0.02 x10^3/uL (0.0-0.031); BASOPHILS # 0.04 x10^3/uL (0.01-0.08); EOSINOPHIL % 2.0 % (0.7-5.8); EOSINOPHILS # 0.19 x10^3/uL (0.04-0.36); MCHC 31.0 g/dl (32.2-35.5); MEAN CELL VOLUME 84.8 fl (79.4-94.8); MEAN PLT VOLUME 10.5 fl (9.4-12.3); MONOCYTE # 0.64 x10^3/uL (0.24-0.86); MONOCYTE % 6.8 % (4.7-12.5); RDW 15.5 % (12.1-16.8)
[2025-01-21 22:16] LABS: EPI CELLS >36 /uL (0-25.1); HCG,QUALITATIVE URINE Negative; HYALINE CASTS 2 /uL (0-3.1); URINE APPEARANCE CLEAR; URINE BACTERIA 4948 /uL (0-1359); URINE BILIRUBIN NEGATIVE (NEGATIVE); URINE COLOR YELLOW; URINE GLUCOSE (UA) NEGATIVE (NEGATIVE); URINE KETONE NEGATIVE (NEGATIVE); URINE LEUK ESTERASE NEGATIVE (NEGATIVE); URINE NITRITE NEGATIVE (NEGATIVE); URINE PROTEIN TRACE (NEGATIVE); URINE RBC 123 /uL (0-23.9); URINE UROBILINOGEN 0.2 mg/dL (0.2-1.0)
[2025-01-21 22:20] LABS: INR 1.01 (0.83-1.09); PROTHROMBIN TIME (PATIENT) 11.0 SEC (9.7-13.0)
[2025-01-21 22:36] LABS: CO2 27.0 mmol/L (21-32); GLUCOSE,RANDOM 121.0 mg/dL (74-106)
[2025-01-21 22:39] LABS: CREATININE 1.1 mg/dL (0.55-1.3); SGOT/AST 23.0 U/L (15-37); SGPT/ALT 46.0 U/L (13-61)
[2025-01-21 22:41] LABS: TOT PROT 7.7 g/dl (6.4-8.2)
[2025-01-21 22:42] LABS: ALK PHOS 61.0 U/L (45-117)
[2025-01-21 23:33] LABS: HIV INTERPRETATION NEGATIVE (NEGATIVE)
[2025-01-21] MEDS: CEFTRIAXONE 1,000 MG in DEXTROSE 5%-WATER - 50 ML IVPB ONE (23:51)
[2025-01-21] MEDS ORDERED: TAMSULOSIN HCL 0.4 MG CAP ONE (23:57)
[2025-01-22] MEDS: TAMSULOSIN HCL 0.4 MG CAP PO ONE (00:06)
[2025-01-22 20:21] LABS: HCV DIAGNOSTIC IN-HOUSE W/RFLX NON-REACTIVE (NONREACTIVE)
== END 2025-01-22 00:39 | disposition home or self-care (01) ==
LOC: JER 21:06
PROC: 3E033GC Introduction of Other Therapeutic Substance into Peripheral Vein, Percutaneous Approach (ICD-10-PCS; principal; 2025-01-21)
PROC: 3E033NZ Introduction of Analgesics, Hypnotics, Sedatives into Peripheral Vein, Percutaneous Approach (ICD-10-PCS; 2025-01-21)
PROC: 3E033NZ Introduction of Analgesics, Hypnotics, Sedatives into Peripheral Vein, Percutaneous Approach (ICD-10-PCS; 2025-01-21)
PROC: 3E033GC Introduction of Other Therapeutic Substance into Peripheral Vein, Percutaneous Approach (ICD-10-PCS; 2025-01-21)
DX: N13.2 Hydronephrosis with renal and ureteral calculous obstruction (principal); R10.31 Right lower quadrant pain; R19.7 Diarrhea, unspecified; R11.2 Nausea with vomiting, unspecified; R68.83 Chills (without fever)
CPT/HCPCS: 36415; 74177-TC; 76830-TC; 80053; 81003; 83605; 83690; 84703; 85025; 85610; 86803; 86850; 86900; 86901; 87086; 87389; 99285-25; Q9967